=== PATIENT | male | born 1990 | race Caucasian/White ===

== ENCOUNTER 2019-12-28 16:05 | Emergency (ER) | payer SELFPAY ==
[~2019-12-28] VITALS: Ht 167.6 cm; Wt 60.3 kg
[2019-12-28 20:20] LABS: INFLUENZA A AMPLIFICATION NEGATIVE (NEGATIVE); INFLUENZA B AMPLIFICATION NEGATIVE (NEGATIVE)
[2019-12-28 20:30] LABS: BASO % 0.3 % (0.0-1.0); EOS # 0.2 10^3/uL (0.0-0.5); EOS % 2.1 % (0.0-3.0); HEMATOCRIT 38.9 % (42.0-52.0); HEMOGLOBIN 12.9 g/dl (13.5-17.5); LYMPH # 1.4 10^3/uL (1.5-5.0); LYMPH % 18.6 % (24.0-44.0); MEAN CORPUSCULAR HEMOGLOBIN 29.9 pg (27.0-33.0); MEAN CORPUSCULAR HGB CONC 33.2 g/dl (32.0-36.5); MONO % 13.4 % (0.0-5.0); NEUTROPHILS # 4.9 10^3/uL (1.5-8.5); NEUTROPHILS % 65.2 % (36.0-66.0); PLATELET COUNT, AUTOMATED 361 10^3/uL (150-450); RED BLOOD COUNT 4.32 10^6/uL (4.30-6.10); WHITE BLOOD COUNT 7.5 10^3/uL (4.0-10.0)
[2019-12-28] MEDS ORDERED: DOXY100C37 PO (21:03)
[2019-12-28] MEDS ORDERED: PROAAER10 INH (21:03)
[2019-12-28 21:06] VITALS: BP 124/71
[2019-12-28] MEDS ORDERED: ACETAMINOPHEN 325 MG TAB PO ONE (21:15)
--- NOTE | 2019-12-29 03:30 | REP ---
Clinical: Cough and fever . Comparison: None . Technique: PA and lateral. Findings: Small left lower lobe infiltrate. Mediastinum and cardiac silhouette normal. No definite effusion. No pneumothorax. Skeletal structures intact. Impression: 1. Small left basilar infiltrate. Electronically Signed by Kev Ibarra MD 12/29/2019 03:22 A
== END 2019-12-28 21:17 | disposition home or self-care (01) ==
LOC: M ED 16:05
DX: J12.9 Viral pneumonia, unspecified (principal); J02.9 Acute pharyngitis, unspecified; Z79.899 Other long term (current) drug therapy